=== PATIENT | male | born 1995 | race Caucasian/White ===

== ENCOUNTER 2016-07-04 11:45 | Observation (INO) | payer BC, MEDICAID ==
[~2016-07-04] VITALS: Ht 170.2 cm; Wt 109.0 kg
[~2016-07-04 11:45] MED LIST: IBUP600T26 PO; LORTA5 PO
[2016-07-04 11:46] VITALS: BP 139/94; PULSE 82; RESP 16; TEMP 97.7; O2SAT 97
[2016-07-04] MEDS ORDERED: SODIUM CHLOR 0.9% 1000 ML INJ 1,000 ML IV ONE ×2 (12:16→14:00)
--- NOTE | 2016-07-04 12:25 | PD ---
HPI Chief Complaint: Flank/Kidney Pain Time Seen by Provider: 12:10 Travel History International Travel<30 days: No Contact w/Intl Traveler<30days: No Traveled to known affect area: No History of Present Illness HPI This is a 20-year-old gentleman with an unfortunate history of renal calculi, who presents today with complaints of right sided flank pain. The patient status post lithotripsy yesterday. He presents today with severe right sided flank pain. He denies any fevers, chills. He states he called his urologist, Dr. Carroll, who told him to come to the ER for evaluation. The patient states he took 2 Percocet however did not alleviate his discomfort. This is what prompted him to call Dr. Carroll. Patient also reports nausea vomiting. PFSH Past Medical History Hx Anticoagulant Therapy: No Cardiovascular Problems: No Chemotherapy: No Cerebrovascular Accident: No Diabetes: No Diminished Hearing: No Respiratory: No Past Surgical History Hysterectomy: No Social History Alcohol Use: No Tobacco Use: No Substance Use: No Allergies-Medications (Allergen,Severity, Reaction): Coded Allergies: No Known Allergies (Unverified , 07/04/16) Reported Meds & Prescriptions Reported Meds & Active Scripts Active Reported Percocet (Oxycodone-Acetaminophen) 5-325 mg Tab 1-2 Tab PO Q6H PRN Wellbutrin Xl 24 HR (Bupropion HCl) 150 Mg Tab 150 Mg PO DAILY Review of Systems Except as stated in HPI: all other systems reviewed are Neg Respiratory: No: Cough, Shortness of Breath Gastrointestinal: Positive: Nausea, Vomiting, No: Abdominal Pain Genitourinary: Positive: Hematuria (mild), Other (blood-tinged urine with some cloudiness), No: Dysuria Musculoskeletal: Positive: Pain (right flank), No: Weakness Physical Exam Narrative GENERAL: Well-nourished, well-developed patient. SKIN: Warm and dry. HEAD: Normocephalic/atraumatic. CARDIOVASCULAR: Regular rate and rhythm without murmurs, gallops, or rubs. RESPIRATORY: Breath sounds equal bilaterally. No wheezes or Rales. GASTROINTESTINAL: Abdomen soft, nondistended. MUSCULOSKELETAL: No cyanosis, or edema. BACK: Mild right sided CVA tenderness. No deformity. NEUROLOGICAL: Awake and alert. Cranial nerves II through XII intact. Motor grossly within normal limits. Five out of 5 muscle strength in all muscle groups. Normal speech. Data Data Last Documented VS Vital Signs Date Time Temp Pulse Resp B/P Pulse Ox O2 Delivery O2 Flow Rate FiO2 07/04/16 15:29 18 07/04/16 13:05 84 07/04/16 11:46 97.7 139/94 97 Room Air Orders Basic Metabolic Panel (Bmp) (07/04/16 12:16) Urinalysis - C+S If Indicated (07/04/16 12:16) Ct Abd/Pel W/O Iv Contrast (07/04/16 12:16) Ecg Monitoring (07/04/16 12:16) Iv Access Insert/Monitor (07/04/16 12:16) Ketorolac Inj (Toradol Inj) (07/04/16 12:30) Ondansetron Inj (Zofran Inj) (07/04/16 12:30) Sodium Chloride 0.9% Flush (Ns Flush) (07/04/16 12:30) Sodium Chlor 0.9% 1000 Ml Inj (Ns 1000 M (07/04/16 12:16) Sodium Chlor 0.9% 1000 Ml Inj (Ns 1000 M (07/04/16 14:00) Hydromorphone Pf Inj (Dilaudid Pf Inj) (07/04/16 14:30) Admit Order (Ed Use Only) (07/04/16 15:36) Labs Laboratory Tests Test 07/04/16 07/04/16 12:55 13:30 Sodium Level 138 MEQ/L Potassium Level 3.9 MEQ/L Chloride Level 101 MEQ/L Carbon Dioxide Level 26.5 MEQ/L Anion Gap 11 MEQ/L Blood Urea Nitrogen 13 MG/DL Creatinine 1.51 MG/DL Estimat Glomerular Filtration 59 ML/MIN Rate Random Glucose 146 MG/DL Calcium Level 10.0 MG/DL Urine Color YELLOW Urine Turbidity HAZY Urine pH 8.0 Urine Specific [place] 1.015 Urine Protein NEG mg/dL Urine Glucose (UA) NEG mg/dL Urine Ketones 40 mg/dL Urine Occult Blood MOD Urine Nitrite NEG Urine Bilirubin NEG Urine Urobilinogen LESS THAN 2.0 MG/DL Urine Leukocyte Esterase NEG Urine RBC /hpf Urine Squamous Epithelial <1 /hpf Cells Urine Amorphous Sediment MOD Urine Bacteria RARE /hpf Urine Mucus FEW /lpf Microscopic Urinalysis Comment CULT NOT INDICATED MDM Medical Decision Making Medical Screen Exam Complete: Yes Emergency Medical Condition: Yes Differential Diagnosis Postprocedure pain versus obstruction versus ureteral spasm versus flank hematoma Narrative Course 20-year-old male with a history of renal lithiasis, status post lithotripsy yesterday, presents today nausea vomiting, right sided flank pain. The patient took 2 Percocets at home with no resolution. The patient's CT scan shows a 2 mm stone in the proximal right ureter with hydroureter. Patient also has 40 ketones in her urine. There is also a creatinine 1.53 which is up from the 1.0 baseline. He's been given 2 L of IVD fluid. He's been given one dose of IV Toradol followed by 1 mg of dilaudid. The patient will be brought in under observation for I V fluids, pain control. Patient's blood sugar was also in the 200s. Patient states that he was told he was prediabetic. It appears that he has a diabetic given the numbers. This was discussed with Dr. Raza Tavera as well as his resident team. Diagnosis Primary Impression: Acute kidney injury Additional Impressions: intractable right flank pain Ureteral stone with hydronephrosis hyperglycemia Hyperglycemia Alban Schmidt MD Jul 04, 2016 12:25
[2016-07-04] MEDS ORDERED: SODIUM CHLORIDE 0.9% FLUSH 10 ML FLUSH IVF PRN ×2 (12:30→16:45)
[2016-07-04] MEDS ORDERED: KETOROLAC TROMETHAMINE 30 MG/ML (IVP) VIAL IVP ONE (12:30)
[2016-07-04] MEDS ORDERED: ONDANSETRON HCL 4 MG/2 ML VIAL IVP ONE (12:30)
--- NOTE | 2016-07-04 12:59 | RADRPT ---
EXAM DATE/TIME: 07/04/2016 12:26 [facility] COMPARISON: CT ABDOMEN & PELVIS W/O CONTRAST, December 27, 2014, 20:56. INDICATIONS : Right flank pain. ORAL CONTRAST: No oral contrast ingested. RADIATION DOSE: 25.44 CTDIvol (mGy) MEDICAL HISTORY : Renal calculi. SURGICAL HISTORY : Lithotripsy. ENCOUNTER: Initial ACUITY: 2 days PAIN SCALE: 7/10 LOCATION: Right flank TECHNIQUE: Volumetric scanning of the abdomen and pelvis was performed. Using automated exposure control and ad justment of the mA and/or kV according to patient size, radiation dose was kept as low as reasonably achievable to obtain optimal diagnostic quality images. FINDINGS: The limited portion of the lung base visualized is clear. Right kidney/ureter: The right kidney is normal in size. There are 3 punctate stones seen within the collecting system. Th e largest measures 2 mm in size. There is mild dilation of the collecting system on the right and the right proximal ureter. There is a 2 mm stone evident within the proximal right ureter. Distally, the ureter is normal in caliber. Left kidney/ureter: The exam demonstrates 3 punctate stones within the collecting system. The largest measures 3 mm in si ze. There is no hydronephrosis. The left ureter is followed throughout its course and is unremarkable . Bladder: No stones are identified within the bladder. CT source data: The appearance of the liver, spleen, pancreas and adrenal glands is within normal limits by noncontra st CT. The visualized loops of small and large bowel are unremarkable. Note is made of a very small l eft inguinal hernia. CONCLUSION: 1. The examination demonstrates a 2 mm stone in the proximal right ureter with mild post obstructive changes. There are multiple other nonobstructing stones seen within the collecting system bilaterally . This is described in detail above. 2. Small left inguinal hernia Mirza Jones MD on July 04, 2016 at 12:48 Board Certified Radiologist. This report was verified electronically.
[2016-07-04] MEDS ORDERED: BUPR150XL PO (13:02)
[2016-07-04] MEDS ORDERED: CIPR-9 PO (13:05)
[2016-07-04] MEDS ORDERED: PERC5TAB12 PO (13:05)
[2016-07-04 13:47] LABS: BICARBONATE 26.5 MEQ/L (21.0-32.0); POTASSIUM 3.9 MEQ/L (3.5-5.1)
[2016-07-04 14:04] LABS: BACTERIA, URINE RARE /hpf; BLOOD, URINE MOD (NEG); COMMENT (UR) CULT NOT INDICATED; CULTURE IF INDICATED CULT NOT INDICATED; GLUCOSE,URINE NEG (NEG); KETONE, URINE 40 mg/dL (NEG); MUCUS URINE FEW /lpf (OCC); NITRITE,URINE NEG (NEG); SQUAMOUS EPITHELIAL CELL URINE <1 /hpf (0-5); URINE COLOR YELLOW (YELLW/STRAW)
[2016-07-04] MEDS ORDERED: HYDROmorphone HCL PF 1 MG/ML VIAL IV PUSH ONE (14:30)
--- NOTE | 2016-07-04 16:26 | HHI.HP ---
[facility] Service Family Medicine Primary Care Physician Nilda Scott MD Admission Diagnosis intractable pain, acute kidney injury, nausea and vomiting. Diagnoses: International Travel<30 Days: No Contact w/Intl Traveler<30days: No Known Affected Area: No History of Present Illness Patient is a 20-year-old male with past medical history significant for recurrent kidney stones who presents to the ED with right flank pain. He had elective lithotripsy procedure by Dr. Green on 07/02/16 to clear out asymptomatic stones which were noted on imaging studies. He notes that there were 24 mm stones in the right kidney and that "maximum wave" (high frequency) was used to break up the stones. The stones were to be removed so that he may have a 24 hour urine study to assess further for calcium levels. He was asymptomatic, only requiring Percocet sparingly 2 days ago. This morning at 6 AM , when he awoke to severe right lower back and flank pain, "like a regular kidney stone." He has had visible blood in the stool since the procedure, most recent urinary output was clear however. He has been using the sieve to filter his urine and has seen 2 small particles but no obvious stones. He also notes it is difficult to get comfortable. He states that the pain did not feel sharp in nature, but did feel constant and throbbing. It was associated with diaphoresis and 3 separate episodes of vomiting liquid as well as what he ate this morning. He took 2 Percocets which only helped for 30 minutes. He then called his urologist (Dr. Green) who told him to present to the ED. He does note he was prescribed ciprofloxacin prophylactically after the procedure which he was taking as prescribed. Missed his morning dose today due to coming to ED. He also had kidney stones diagnosed 2 years ago as well as in April 2016. In April he did take Flomax once which made him sleepy, which he discontinued because he was driving at the time. He collected stones in April which were shown to contain calcium. He does also have elevated calcium levels in his blood but normal "hormones which regulate calcium." In the ED he received a fluid bolus, Toradol, and Dilaudid. He states he feels better now. (Genesis Das MD R1) Review of Systems Constitutional: DENIES: Fever, Chills Endocrine: DENIES: Polyuria Eyes: DENIES: Blurred vision, Vision loss Ears, nose, mouth, throat: DENIES: Hearing loss, Running Nose, Epistaxis Respiratory: DENIES: Cough, Wheezing Cardiovascular: DENIES: Chest pain, Palpitations Gastrointestinal: DENIES: Abdominal pain, Black stools, Bloody stools, Constipation, Diarrhea, Nausea, Vomiting Genitourinary: COMPLAINS OF: Hematuria Musculoskeletal: COMPLAINS OF: Back pain (right flank), DENIES: Joint pain, Muscle aches Integumentary: DENIES: Pruritus, Rash Hematologic/lymphatic: DENIES: Lymphadenopathy Immunologic/allergic: DENIES: Urticaria Neurologic: DENIES: Localized weakness Psychiatric: COMPLAINS OF: Depression (takes Wellbutrin) (Genesis Das MD R1 ) Past Family Social History Past Medical History Prediabetic - last week PCP - Dr. Alonso in [place] - 2013, Apr 2016 (first time, used sieve, no stones; Apr 2016 stone Familial - mother's side of family Reported Medications Percocet (Oxycodone-Acetaminophen) 5-325 mg Tab 1-2 Tab PO Q6H PRN Wellbutrin Xl 24 HR (Bupropion HCl) 150 Mg Tab 150 Mg PO DAILY Ciprofloxacin (Genesis Das MD R1) Allergies: Coded Allergies: No Known Allergies (Unverified , 07/04/16) Active Ordered Medications Inpatient Medications Ciprofloxacin (Cipro) 500 mg Q12H PO Last administered on 07/04/16 18:01; Start 07/04/16 at 17:00 Hydromorphone HCl (Dilaudid Pf Inj) 1 mg Q4H PRN IV BREAKTHROUGH PAIN; Start at 16:45 Ketorolac Tromethamine (Toradol Inj) 30 mg ONCE ONCE IVP Last administered on 07/04/16 12:51; Start 07/04/16 at 12:30; Stop 07/04/16 at 12:31; Status DC Ketorolac Tromethamine (Toradol) 10 mg Q6HR PO ; Start 07/05/16 at 09:00; Stop 07/09/16 at 08:59 Naloxone HCl (Narcan Inj) 0.4 mg UNSCH PRN IV SEE LABEL COMMENTS; Start at 16:45 Ondansetron HCl (Zofran Odt) 4 mg Q4H PRN PO NAUSEA/VOMITING; Start 07/04/16 at 17:00 Ondansetron HCl (Zofran Inj) 4 mg ONCE ONCE IVP Last administered on 12:51; Start 07/04/16 at 12:30; Stop 07/04/16 at 12:31; Status DC Oxycodone/ Acetaminophen (Percocet 5-325 Mg) 2 tab Q4H PRN PO PAIN SCALE 6 TO 10; Start 07/04/16 at 16:45 Sodium Chloride (NS 1000 ml Inj) 1,000 ml @ 150 mls/hr Q6H40M IV Last administered on 07/04/16 18:01; Start 07/04/16 at 17:00 Sodium Chloride (NS Flush) 2 ml BID IV FLUSH ; Start 07/04/16 at 21:00; Stop at 21:00; Status DC Tamsulosin HCl 0.4 mg 0.4 mg HS PO ; Start 07/04/16 at 21:00 Family History Maternal grandfather with IN Father with diabetes and hypertension Multiple family members with heart issues Maternal family members with kidney stones Social History Never smoker Alcohol - occasional Illicit - denies Studies at [facility] (Genesis Das MD R1) Physical Exam Vital Signs Vital Signs Date Time Temp Pulse Resp B/P Pulse Ox O2 Delivery O2 Flow Rate FiO2 07/04/16 15:29 18 07/04/16 13:51 20 07/04/16 13:05 84 18 07/04/16 11:46 97.7 82 16 139/94 97 Room Air Physical Exam GENERAL: This is a well-nourished, well-developed male patient sitting up in bed in no apparent distress. at bedside. SKIN: No rashes, ecchymoses or lesions. Warm and dry. HEAD: Atraumatic. Normocephalic. No temporal or scalp tenderness. EYES: Pupils equal round and reactive. Extraocular motions intact. No scleral icterus. No injection or drainage. ENT: Nose without bleeding or drainage. Throat without erythema, tonsillar hypertrophy or exudate. Uvula midline. Airway patent. NECK: Trachea midline. No JVD or lymphadenopathy. Supple, nontender, no meningeal signs. CARDIOVASCULAR: Regular rate and rhythm without murmurs, gallops, or rubs. RESPIRATORY: Clear to auscultation. Breath sounds equal bilaterally. No wheezes , rales, or rhonchi. BACK: No CVA tenderness. GASTROINTESTINAL: Abdomen soft, non-tender, nondistended. Normal bowel sounds. No obvious organomegaly. MUSCULOSKELETAL: Extremities without clubbing, cyanosis, or edema. No joint tenderness, effusion, or edema noted. No calf tenderness. Negative Homans sign bilaterally. NEUROLOGICAL: Awake and alert. Cranial nerves II through XII intact. Motor and sensory grossly within normal limits. Five out of 5 muscle strength in all muscle groups. Normal speech. Laboratory Laboratory Tests Test 07/04/16 07/04/16 12:55 13:30 Sodium Level 138 Potassium Level 3.9 Chloride Level 101 Carbon Dioxide Level 26.5 Anion Gap 11 Blood Urea Nitrogen 13 Creatinine 1.51 Estimat Glomerular Filtration 59 Rate Random Glucose 146 Calcium Level 10.0 Urine Color YELLOW Urine Turbidity HAZY Urine pH 8.0 Urine Specific [place] 1.015 Urine Protein NEG Urine Glucose (UA) NEG Urine Ketones 40 Urine Occult Blood MOD Urine Nitrite NEG Urine Bilirubin NEG Urine Urobilinogen LESS THAN 2.0 Urine Leukocyte Esterase NEG Urine RBC Urine Squamous Epithelial <1 Cells Urine Amorphous Sediment MOD Urine Bacteria RARE Urine Mucus FEW Microscopic Urinalysis Comment CULT NOT INDICATED (Genesis Das MD R1) Result Diagram: 07/04/16 1255 Imaging Last Impressions Abdomen/Pelvis CT 07/04/16 1216 Signed Impressions: Service Date/Time: Wednesday, July 04, 2016 12:26 - CONCLUSION: 1. The examination demonstrates a 2 mm stone in the proximal right ureter with mild post obstructive changes. There are multiple other nonobstructing stones seen within the collecting system bilaterally. This is described in detail above. 2. Small left inguinal hernia Mirza Jones MD (Genesis Das MD R1) Assessment and Plan Assessment and Plan 20-year-old male with a history of bladder nephrolithiasis presents after lithotripsy 2 days ago with acute onset right flank pain. Code Status Full code Discussed Condition With Dr. Tavera, Dr. Alvarez (Genesis Das MD R1) Attending Attestation THIS CASE WAS DISCUSSED WITH THE RESIDENT PHYSICIAN. I HAVE REVIEWED THE RECORD AND AGREE WITH THE ABOVE NOTE AND PLAN OF CARE WAS DISCUSSED. I HAVE AUTHORIZED THE ORDER FOR PLACEMENT IN OUT-PATIENT OBSERVATION STATUS. (Raza Tavera MD) Problem List: (1) Ureteral stone with hydronephrosis Status: Acute Plan: Patient presents with acute right flank pain after lithotripsy procedure [address] showing 2 mm stone in the right proximal ureter. He is also noted to have acute kidney injury. -Admit to observation -Monitor vital signs -Maintenance IV fluids. He is status post bolus in ED -Recheck BMP in the morning -Pain management with Percocet 5-325mg 1 tab pain 1-5, Percocet 5-325mg 2 tabs pain 6-10, Dilaudid 1 mg IV for breakthrough pain -Continue ciprofloxacin 500 mg by mouth twice a day (2) Acute kidney injury Status: Acute Plan: Likely related to recent lithotripsy procedure and kidney stone and ureter. IV fluids as above, monitor BMP (3) Hyperglycemia Status: Acute Plan: Likely transient, however, patient states he is prediabetic on labs one week ago. We'll monitor BMP and bedside glucose. (4) Fluids/Electrolytes/Nutrition/Prophylaxis Status: Acute Plan: Fluids: NS @ 150ml/hr Electrolytes: monitor and replete as needed Nutrition: Regular DVT Prophylaxis: Deferred, patient is young and ambulatory GI Prophylaxis: Not indicated (Genesis Das MD R1) Genesis Das MD R1 Jul 04, 2016 16:26 Raza Tavera MD Jul 04, 2016 19:27
[2016-07-04] MEDS ORDERED: HYDROmorphone HCL PF 1 MG/ML VIAL IV PRN (16:45)
[2016-07-04] MEDS ORDERED: NALOXONE HCL 0.4 MG/ML AMP IV PRN (16:45)
[2016-07-04] MEDS ORDERED: SODIUM CHLORIDE 0.9% FLUSH 10 ML FLUSH IV FLUSH PRN (16:45)
[2016-07-04] MEDS ORDERED: SODIUM CHLOR 0.9% 1000 ML INJ 1,000 ML IV SCH (17:00)
[2016-07-04] MEDS ORDERED: ONDANSETRON ODT 4 MG TAB PO PRN (17:00)
[2016-07-04] MEDS: CIPROFLOXACIN 500 MG TAB PO SCH (18:01)
[2016-07-04] MEDS: SODIUM CHLOR 0.9% 1000 ML INJ 1,000 ML IV SCH (18:01)
[2016-07-04 18:46] VITALS: BP 144/88
--- NOTE | 2016-07-04 19:25 | HHI.HP ---
[facility] Service Family Medicine Primary Care Physician Nilda Scott MD Admission Diagnosis intractable pain, acute kidney injury, nausea and vomiting. Diagnoses: (1) Ureteral stone with hydronephrosis (2) Acute kidney injury (3) Hyperglycemia (4) Fluids/Electrolytes/Nutrition/Prophylaxis International Travel<30 Days: No Contact w/Intl Traveler<30days: No Known Affected Area: No History of Present Illness 20 yo M presenting with significant right sided flank pain s/p lithotripsy 2 days ago. He has a h/o kidney stones and is followed by Dr. Carroll. He had lithotripsy performed 2 days ago for 2 stones that were 4mm in size - and was given Percocet and Ciprofloxacin upon completion. He had some mild pain after the procedure and yesterday felt relatively well without pain, however he woke up this morning with persistent and deep right sided flank pain radiating to his right hip that was not helped with his home percocet. He states that the pain did not feel sharp in nature, but did feel constant and throbbing. It was associated with diaphoresis and 3 separate episodes of vomiting liquid as well as what he ate this morning. He then called his urologist (Dr. Carroll) who told him to present to the ED. He has a history of kidney stones in the past x2 but this is the first lithotripsy procedure he has had. The stones were to be removed so that he may have a 24 hour urine study to assess further for calcium levels. He has had visible blood in the stool since the procedure, most recent urinary output was clear however. He has been using the sieve to filter his urine and has seen 2 small particles but no obvious stones. He does note he was prescribed ciprofloxacin prophylactically after the procedure which he was taking as prescribed. Missed his morning dose today due to coming to ED. He also had kidney stones diagnosed 2 years ago as well as in April 2016. In April he did take Flomax once which made him sleepy, which he discontinued because he was driving at the time. He collected stones in April which were shown to contain calcium. He does also have elevated calcium levels in his blood but normal "hormones which regulate calcium." In the ED he received a fluid bolus, Toradol, and Dilaudid. He states he feels better now. Review of Systems Constitutional: COMPLAINS OF: Diaphoretic episodes, Chills, DENIES: Fever Respiratory: DENIES: Shortness of breath Cardiovascular: DENIES: Chest pain, Palpitations Gastrointestinal: COMPLAINS OF: Vomiting, DENIES: Abdominal pain, Constipation , Diarrhea, Nausea Genitourinary: COMPLAINS OF: Hematuria, DENIES: Urinary frequency, Urinary incontinence, Urgency, Dysuria, Testicular Pain Musculoskeletal: DENIES: Joint pain Past Family Social History Past Medical History Prediabetic - last week PCP - Dr. Alonso in [place] - 2013, Apr 2016 (first time, used sieve, no stones; Apr 2016 stone Familial - mother's side of family Allergies: Coded Allergies: No Known Allergies (Unverified , 07/04/16) Family History Maternal grandfather with IN Father with diabetes and hypertension Multiple family members with heart issues Maternal family members with kidney stones Social History Never smoker Alcohol - occasional Illicit - denies Studies at [facility] major Physical Exam Vital Signs Vital Signs Date Time Temp Pulse Resp B/P Pulse Ox O2 Delivery O2 Flow Rate FiO2 07/04/16 18:46 144/88 07/04/16 15:29 18 07/04/16 13:51 20 07/04/16 13:05 84 18 07/04/16 11:46 97.7 82 16 139/94 97 Room Air Physical Exam GENERAL: This is a well-nourished, well-developed male patient sitting up in bed in no apparent distress. at bedside. SKIN: No rashes, ecchymoses or lesions. Warm and dry. NECK: Trachea midline. No JVD or lymphadenopathy. CARDIOVASCULAR: Regular rate and rhythm without murmurs, gallops, or rubs. RESPIRATORY: Clear to auscultation. Breath sounds equal bilaterally. No wheezes , rales, or rhonchi. BACK: No CVA tenderness. GASTROINTESTINAL: Abdomen soft, non-tender, nondistended. Normal bowel sounds. No obvious organomegaly. MUSCULOSKELETAL: Extremities without clubbing, cyanosis, or edema. NEUROLOGICAL: Awake and alert. Normal speech. Laboratory Laboratory Tests Test 07/04/16 07/04/16 12:55 13:30 Sodium Level 138 Potassium Level 3.9 Chloride Level 101 Carbon Dioxide Level 26.5 Anion Gap 11 Blood Urea Nitrogen 13 Creatinine 1.51 Estimat Glomerular Filtration 59 Rate Random Glucose 146 Calcium Level 10.0 Urine Color YELLOW Urine Turbidity HAZY Urine pH 8.0 Urine Specific [place] 1.015 Urine Protein NEG Urine Glucose (UA) NEG Urine Ketones 40 Urine Occult Blood MOD Urine Nitrite NEG Urine Bilirubin NEG Urine Urobilinogen LESS THAN 2.0 Urine Leukocyte Esterase NEG Urine RBC Urine Squamous Epithelial <1 Cells Urine Amorphous Sediment MOD Urine Bacteria RARE Urine Mucus FEW Microscopic Urinalysis Comment CULT NOT INDICATED Result Diagram: 07/04/16 1255 Imaging Last Impressions Abdomen/Pelvis CT 07/04/16 1216 Signed Impressions: Service Date/Time: Monday, July 04, 2016 12:26 - CONCLUSION: 1. The examination demonstrates a 2 mm stone in the proximal right ureter with mild post obstructive changes. There are multiple other nonobstructing stones seen within the collecting system bilaterally. This is described in detail above. 2. Small left inguinal hernia Mirza Jones MD Assessment and Plan Assessment and Plan 20-year-old male with a history of bladder nephrolithiasis presents after lithotripsy 2 days ago with acute onset right flank pain. Problem List: (1) Ureteral stone with hydronephrosis Status: Acute Plan: Patient presents with acute right flank pain after lithotripsy procedure [address] showing 2 mm stone in the right proximal ureter. He is also noted to have acute kidney injury. -Admit to observation -Monitor vital signs -Maintenance IV fluids. He is status post bolus in ED -Recheck BMP in the morning -Pain management with Percocet 5-325mg 1 tab pain 1-5, Percocet 5-325mg 2 tabs pain 6-10, Dilaudid 1 mg IV for breakthrough pain -Continue ciprofloxacin 500 mg by mouth twice a day (2) Acute kidney injury Status: Acute Plan: Likely related to recent lithotripsy procedure and kidney stone and ureter. IV fluids as above, monitor BMP (3) Hyperglycemia Status: Acute Plan: Likely transient, however, patient states he is prediabetic on labs one week ago. We'll monitor BMP and bedside glucose. (4) Fluids/Electrolytes/Nutrition/Prophylaxis Status: Acute Plan: Fluids: NS @ 150ml/hr Electrolytes: monitor and replete as needed Nutrition: Regular DVT Prophylaxis: Deferred, patient is young and ambulatory GI Prophylaxis: Not indicated Raza Tavera MD Jul 04, 2016 19:25
[2016-07-04] MEDS: TAMSULOSIN HCL 0.4 MG CAP PO SCH (20:00)
[2016-07-04] MEDS: SODIUM CHLORIDE 0.9% FLUSH 10 ML FLUSH IVF SCH (20:01)
[2016-07-04] MEDS: oxyCODONE/ACETAMINOPHEN 5 MG/325 MG TAB PO PRN (20:01)
[2016-07-04 20:13] VITALS: BP 138/76; PULSE 75; RESP 18; TEMP 98.4; O2SAT 97
[2016-07-04] MEDS ORDERED: SODIUM CHLORIDE 0.9% FLUSH 10 ML FLUSH IV FLUSH SCH (21:00)
[2016-07-05 00:35] VITALS: BP 140/72; PULSE 85; RESP 18; TEMP 97.8; O2SAT 97
[2016-07-05] MEDS: SODIUM CHLOR 0.9% 1000 ML INJ 1,000 ML IV SCH ×3 (03:07→16:10)
[2016-07-05 03:55] VITALS: BP 138/78; PULSE 82; RESP 18; TEMP 97.9; O2SAT 96
[2016-07-05] MEDS: CIPROFLOXACIN 500 MG TAB PO SCH ×2 (05:06→16:47)
[2016-07-05] MEDS: oxyCODONE/ACETAMINOPHEN 5 MG/325 MG TAB PO PRN ×3 (05:12→16:24)
[2016-07-05 07:05] LABS: AUTOMATED NEUTROPHIL # 7.5 TH/MM3 (1.8-7.7); BASOPHIL % 0.3 % (0.0-2.0); EOSINOPHIL # 0.1 TH/MM3 (0-0.4); EOSINOPHIL % 1.3 % (0.0-4.0); HEMATOCRIT 39.4 % (39.0-51.0); HEMO FLAGS DIFF FINAL; LYMPH % 19.1 % (9.0-44.0); LYMPHOCYTE # 2.1 TH/MM3 (1.0-4.8); MEAN CELL VOLUME 87.6 FL (80.0-100.0); MEAN CORPUSCULAR HEMOGLOBIN 30.5 PG (27.0-34.0); MEAN CORPUSCULAR HGB CONC 34.9 % (32.0-36.0); MONO % 11.5 % (0.0-8.0); NEUT % 67.8 % (16.0-70.0); PLATELET COUNT 263 TH/MM3 (150-450); RED CELL DISTRIBUTION WIDTH 12.9 % (11.6-17.2)
[2016-07-05 07:07] LABS: BICARBONATE 26.2 MEQ/L (21.0-32.0); POTASSIUM 3.9 MEQ/L (3.5-5.1)
[2016-07-05 07:58] VITALS: BP 112/75; PULSE 95; RESP 18; TEMP 98.2; O2SAT 9
[2016-07-05] MEDS: KETOROLAC TROMETHAMINE 10 MG TAB PO SCH ×3 (08:40→22:00)
[2016-07-05] MEDS: SODIUM CHLORIDE 0.9% FLUSH 10 ML FLUSH IVF SCH ×2 (09:00→21:00)
--- NOTE | 2016-07-05 11:21 | HHI.FPPN ---
Subjective Remarks Patient states that he is currently feeling well. When he first awakened this morning, pain was not as well controlled but he has since received po analgesia , which has helped. No denies fever, chills, sob. He has strained his urine but has not noticed passage of stone. (Yaima Das MD) Objective Vitals Vital Signs Date Time Temp Pulse Resp B/P Pulse Ox O2 Delivery O2 Flow Rate FiO2 07/05/16 07:58 98.2 95 18 112/75 9 07/05/16 03:55 97.9 82 18 138/78 96 07/05/16 00:35 97.8 85 18 140/72 97 07/04/16 20:13 98.4 75 18 138/76 97 07/04/16 18:46 144/88 07/04/16 15:29 18 07/04/16 13:51 20 07/04/16 13:05 84 18 07/04/16 11:46 97.7 82 16 139/94 97 Room Air (Yaima Das MD) Result Diagram: 07/05/16 0557 07/05/16 0537 Objective Remarks GENERAL: This is a well-nourished, well-developed male patient sitting up in bed in no apparent distress. SKIN: No rashes, ecchymoses or lesions. Warm and dry. HEAD: Atraumatic. Normocephalic. EYES: Pupils equal round and reactive. Extraocular motions intact. No scleral icterus. No injection or drainage. ENT: Nose without bleeding or drainage. Throat without erythema, tonsillar hypertrophy or exudate. Uvula midline. Airway patent. NECK: Trachea midline. No JVD or lymphadenopathy. Supple, nontender, no meningeal signs. CARDIOVASCULAR: Regular rate and rhythm without murmurs, gallops, or rubs. RESPIRATORY: Clear to auscultation. Breath sounds equal bilaterally. No wheezes , rales, or rhonchi. BACK: No CVA tenderness, mild right sided flank tenderness. GASTROINTESTINAL: Abdomen soft, non-tender, nondistended. Normal bowel sounds. No obvious organomegaly. MUSCULOSKELETAL: Extremities without clubbing, cyanosis, or edema. NEUROLOGICAL: Awake and alert. Cranial nerves II through XII intact. Motor and sensory grossly within normal limits. Five out of 5 muscle strength in all muscle groups. Normal speech. (Yaima Das MD) Urinary Catheter: No (Yaima Das MD) Vascular Central Line Catheter: No (Yaima Das MD) A/P Assessment and Plan 20-year-old male with a history of bladder nephrolithiasis presents after lithotripsy 2 days ago with acute onset right flank pain. wdw: Dr. Tavera Discharge Planning home later today (Yaima Das MD) Attending Attestation Pt. examined and case discussed with resident physicians I have read the above note and agree with the assessment/plan as discussed with me I was involved in all medical decision making for this patient Raza Tavera MD (Raza Tavera MD) Problem List: (1) Ureteral stone with hydronephrosis Status: Acute Plan: Patient presents with acute right flank pain after lithotripsy procedure [address] showing 2 mm stone in the right proximal ureter. He is also noted to have acute kidney injury. -Monitor vital signs -Maintenance IV fluids: NS at 150 mls/hr -Pain management with Percocet 5-325mg 1 tab pain 1-5, Percocet 5-325mg 2 tabs pain 6-10, Dilaudid 1 mg IV for breakthrough pain -Flomax 0.4 mg po hs -Continue ciprofloxacin 500 mg by mouth twice a day -DC home later today if patient continues to do well with oral analgesia, stone likely to be passed without urological procedure given stone is < 5mm (2) Acute kidney injury Status: Acute Plan: Likely related to recent lithotripsy procedure and kidney stone and ureter. IV fluids as above, monitor BMP (3) Hyperglycemia Status: Resolved Plan: Serum glucose 105 this morning. (4) Fluids/Electrolytes/Nutrition/Prophylaxis Status: Acute Plan: Fluids: NS @ 150ml/hr Electrolytes: monitor and replete as needed Nutrition: Regular DVT Prophylaxis: Deferred, patient is young and ambulatory GI Prophylaxis: Not indicated (Yiama Das MD) Yaima Das MD Jul 05, 2016 11:21 Raza Tavera MD Jul 05, 2016 17:18
[2016-07-05 11:35] VITALS: BP 122/71; PULSE 89; RESP 18; O2SAT 95
[2016-07-05] MEDS ORDERED: KETO10 PO (12:31)
[2016-07-05] MEDS ORDERED: TAMS5CAP PO (12:31)
[2016-07-05] MEDS ORDERED: OXYC1TAB63 PO (12:31)
[2016-07-05] MEDS ORDERED: CIPR-9 PO (12:31)
--- NOTE | 2016-07-05 12:32 | HHI.DCPOC ---
Discharge Care Plan Diagnosis: (1) Ureteral stone with hydronephrosis Goals to Promote Your Health * To prevent worsening of your condition and complications, take medication as prescribed and follow up with urologist. Directions to Meet Your Goals Take your medications as prescribed Follow your dietary instruction Follow activity as directed Keep your appointments as scheduled Take your immunizations and boosters as scheduled If your symptoms worsen call your PCP, if no PCP go to Urgent Care Center or Emergency Room Smoking is Dangerous to Your Health. Avoid second hand smoke Call the 24-hour hour crisis hotline for domestic abuse at Yaima Das MD Jul 05, 2016 12:32
[2016-07-05 15:55] VITALS: BP 120/74; PULSE 86; RESP 20; TEMP 98.5; O2SAT 95
[2016-07-05 20:52] VITALS: BP 125/72; PULSE 91; RESP 18; TEMP 97.8; O2SAT 95
[2016-07-05] MEDS: TAMSULOSIN HCL 0.4 MG CAP PO SCH (22:00)
[2016-07-06 00:40] VITALS: BP 134/80; PULSE 68; RESP 18; TEMP 98.8; O2SAT 97
[2016-07-06] MEDS: oxyCODONE/ACETAMINOPHEN 5 MG/325 MG TAB PO PRN ×2 (00:47→13:33)
[2016-07-06] MEDS: SODIUM CHLOR 0.9% 1000 ML INJ 1,000 ML IV SCH ×2 (01:48→09:09)
[2016-07-06] MEDS: KETOROLAC TROMETHAMINE 10 MG TAB PO SCH ×3 (03:00→15:09)
[2016-07-06 04:53] VITALS: BP 121/56; PULSE 92; RESP 18; TEMP 98.8; O2SAT 98
[2016-07-06] MEDS: CIPROFLOXACIN 500 MG TAB PO SCH (04:57)
[2016-07-06 06:32] LABS: BICARBONATE 25.9 MEQ/L (21.0-32.0); POTASSIUM 3.7 MEQ/L (3.5-5.1)
[2016-07-06] MEDS ORDERED: SODIUM CHLORID 0.9% 500 ML INJ 500 ML IV ONE (07:00)
[2016-07-06 08:19] VITALS: BP 146/74; PULSE 92; RESP 19; TEMP 97.8; O2SAT 96
[2016-07-06] MEDS: SODIUM CHLORIDE 0.9% FLUSH 10 ML FLUSH IVF SCH (09:00)
--- NOTE | 2016-07-06 09:12 | HHI.FPPN ---
Subjective Remarks Patient was still having right sided lower back pain. Today it is a 3/10, constant, dull aching. Yesterday he did not tolerate a diet well, and had severe nausea. No blood in urine and no passage of stone. Denies fevers and chills. (Sal Alvarez MD R2) Objective Vitals Vital Signs Date Time Temp Pulse Resp B/P Pulse Ox O2 Delivery O2 Flow Rate FiO2 07/06/16 08:19 97.8 92 19 146/74 96 07/06/16 04:53 98.8 92 18 121/56 98 07/06/16 00:40 98.8 68 18 134/80 97 07/05/16 20:52 97.8 91 18 125/72 95 07/05/16 15:55 98.5 86 20 120/74 95 07/05/16 15:03 16 07/05/16 11:35 89 18 122/71 95 I/O 07/05/16 07/05/16 07/05/16 07/06/16 07/06/16 07/06/16 07:00 15:00 23:00 07:00 15:00 23:00 Intake Total 1980 ml 1500 ml Balance 1980 ml 1500 ml Intake Oral 480 ml IV Total 1500 ml 1500 ml # Voids 3 # Bowel Movements 0 (Sal Alvarez MD R2) Result Diagram: 07/05/16 0557 07/06/16 0542 Objective Remarks GENERAL: This is a well-nourished, well-developed male patient sitting up in bed in no apparent distress. SKIN: No rashes, ecchymoses or lesions. Warm and dry. HEAD: Atraumatic. Normocephalic. EYES: Pupils equal round and reactive. Extraocular motions intact. No scleral icterus. No injection or drainage. ENT: Nose without bleeding or drainage. Throat without erythema, tonsillar hypertrophy or exudate. Uvula midline. Airway patent. NECK: Trachea midline. No JVD or lymphadenopathy. Supple, nontender, no meningeal signs. CARDIOVASCULAR: Regular rate and rhythm without murmurs, gallops, or rubs. RESPIRATORY: Clear to auscultation. Breath sounds equal bilaterally. No wheezes , rales, or rhonchi. BACK: No CVA tenderness, mild right sided flank tenderness. GASTROINTESTINAL: Abdomen soft, non-tender, nondistended. Normal bowel sounds. No obvious organomegaly. MUSCULOSKELETAL: Extremities without clubbing, cyanosis, or edema. NEUROLOGICAL: Awake and alert. Cranial nerves II through XII intact. Motor and sensory grossly within normal limits. Five out of 5 muscle strength in all muscle groups. Normal speech. (Sal Alvarez MD R2) A/P Assessment and Plan 20-year-old male with a history of bladder nephrolithiasis presents after lithotripsy 2 days ago with acute onset right flank pain. dw: Dr. Tavera Discharge Planning home later today (Sal Alvarez MD R2) Attending Attestation Pt. examined and case discussed with resident physicians I have read the above note and agree with the assessment/plan as discussed with me I was involved in all medical decision making for this patient Raza Tavera MD (Raza Tavera MD) Problem List: (1) Ureteral stone with hydronephrosis Status: Acute Plan: Patient presents with acute right flank pain after lithotripsy procedure [address] showing 2 mm stone in the right proximal ureter. He is also noted to have acute kidney injury. -Monitor vital signs -Maintenance IV fluids: NS at 150 mls/hr -Pain management with Percocet 5-325mg 1 tab pain 1-5, Percocet 5-325mg 2 tabs pain 6-10, Dilaudid 1 mg IV for breakthrough pain -Flomax 0.4 mg po hs -Continue ciprofloxacin 500 mg by mouth twice a day -US right kidney for signs of obstruction --- CR increased from 1.51 --> 1.68. ? Hydronephrosis vs. interstitial nephritis 2/2 cipro. (2) Acute kidney injury Status: Acute Plan: Rule out obstruction as above. IV fluids as above, monitor BMP (3) Hyperglycemia Status: Resolved Plan: Serum glucose 104 this morning. (4) Fluids/Electrolytes/Nutrition/Prophylaxis Status: Acute Plan: Fluids: NS @ 150ml/hr Electrolytes: monitor and replete as needed Nutrition: Regular DVT Prophylaxis: Deferred, patient is young and ambulatory GI Prophylaxis: Not indicated dw Dr. Tavera. (Sal Alvarez MD R2) Sal Alvarez MD R2 Jul 06, 2016 09:12 Raza Tavera MD Jul 06, 2016 19:07
--- NOTE | 2016-07-06 10:11 | RADRPT ---
EXAM DATE/TIME: 07/06/2016 09:33 [facility] COMPARISON: CT ABDOMEN & PELVIS W/O CONTRAST, July 04, 2016, 12:26. INDICATIONS : Obstruction. MEDICAL HISTORY : Renal calculi. Hematuria. Excessive sweating. SURGICAL HISTORY : Lithotripsy on 07/02/16. ENCOUNTER: Initial ACUITY: 1 day PAIN SCORE: 5/10 LOCATION: Bilateral flank MEASUREMENTS: RIGHT KIDNEY: 11.1 x 6.4 x 6.2 cm LEFT KIDNEY: 12.4 x 5.8 x 5.6 cm FINDINGS: RIGHT KIDNEY: Renal calculi are noted, small without hydronephrosis. LEFT KIDNEY: Renal calculi are again noted without hydronephrosis. BLADDER: Within normal limits given the degree of distension. CONCLUSION: Bilateral renal calculi. These are small by CT measuring less 1 cm and multiple numbers. There is n o hydronephrosis. Nikhil Jones MD FACR on July 06, 2016 at 10:07 Board Certified Radiologist. This report was verified electronically.
[2016-07-06] MEDS ORDERED: PROMETHAZINE HCL 25 MG TAB PO PRN (12:00)
[2016-07-06 12:14] VITALS: BP 121/82; PULSE 90; RESP 19; TEMP 98; O2SAT 94
[2016-07-06] MEDS ORDERED: PROM25TA5 PO (16:36)
--- NOTE | 2016-07-08 11:08 | HHI.DS ---
Discharge Summary Admission Date Jul 04, 2016 at 15:38 Discharge Date: Jul 06, 2016 Admitting Diagnosis intractable pain, acute kidney injury, nausea and vomiting. (1) Ureteral stone with hydronephrosis Diagnosis: Principal Plan: Patient presents with acute right flank pain after lithotripsy procedure [address] showing 2 mm stone in the right proximal ureter. He is also noted to have acute kidney injury. -Monitor vital signs -Maintenance IV fluids: NS at 150 mls/hr -Pain management with Percocet 5-325mg 1 tab pain 1-5, Percocet 5-325mg 2 tabs pain 6-10, Dilaudid 1 mg IV for breakthrough pain -Flomax 0.4 mg po hs -Continue ciprofloxacin 500 mg by mouth twice a day -US right kidney for signs of obstruction --- CR increased from 1.51 --> 1.68. ? Hydronephrosis vs. interstitial nephritis 2/2 cipro. (2) Acute kidney injury Diagnosis: Principal Plan: Rule out obstruction as above. IV fluids as above, monitor BMP (3) Fluids/Electrolytes/Nutrition/Prophylaxis Plan: Fluids: NS @ 150ml/hr Electrolytes: monitor and replete as needed Nutrition: Regular DVT Prophylaxis: Deferred, patient is young and ambulatory GI Prophylaxis: Not indicated Consultants None Brief History 20 yo M presenting with significant right sided flank pain s/p lithotripsy 2 days ago. He has a h/o kidney stones and is followed by Dr. Carroll. He had lithotripsy performed 2 days ago for 2 stones that were 4mm in size - and was given Percocet and Ciprofloxacin upon completion. He had some mild pain after the procedure and yesterday felt relatively well without pain, however he woke up this morning with persistent and deep right sided flank pain radiating to his right hip that was not helped with his home percocet. He states that the pain did not feel sharp in nature, but did feel constant and throbbing. It was associated with diaphoresis and 3 separate episodes of vomiting liquid as well as what he ate this morning. He then called his urologist (Dr. Carroll) who told him to present to the ED. He has a history of kidney stones in the past x2 but this is the first lithotripsy procedure he has had. The stones were to be removed so that he may have a 24 hour urine study to assess further for calcium levels. He has had visible blood in the stool since the procedure, most recent urinary output was clear however. He has been using the sieve to filter his urine and has seen 2 small particles but no obvious stones. He does note he was prescribed ciprofloxacin prophylactically after the procedure which he was taking as prescribed. Missed his morning dose today due to coming to ED. He also had kidney stones diagnosed 2 years ago as well as in April 2016. In April he did take Flomax once which made him sleepy, which he discontinued because he was driving at the time. He collected stones in April which were shown to contain calcium. He does also have elevated calcium levels in his blood but normal "hormones which regulate calcium." In the ED he received a fluid bolus, Toradol, and Dilaudid. He states he feels better now. CBC/BMP: 07/05/16 0557 07/06/16 0542 Significant Findings Laboratory Tests Test 07/06/16 05:42 Creatinine 1.68 MG/DL (0.60-1.30) Estimat Glomerular Filtration 52 ML/MIN (>89) Rate Imaging Last Impressions Renal Ultrasound 07/06/16 0000 Signed Impressions: Service Date/Time: Wednesday, July 06, 2016 09:33 - CONCLUSION: Bilateral renal calculi. These are small by CT measuring less 1 cm and multiple numbers. There is no hydronephrosis. Nikhil Jones MD FACR Abdomen/Pelvis CT 07/04/16 1216 Signed Impressions: Service Date/Time: Monday, July 04, 2016 12:26 - CONCLUSION: 1. The examination demonstrates a 2 mm stone in the proximal right ureter with mild post obstructive changes. There are multiple other nonobstructing stones seen within the collecting system bilaterally. This is described in detail above. 2. Small left inguinal hernia Mirza Jones MD PE at Discharge GENERAL: This is a well-nourished, well-developed male patient sitting up in bed in no apparent distress. SKIN: No rashes, ecchymoses or lesions. Warm and dry. HEAD: Atraumatic. Normocephalic. EYES: Pupils equal round and reactive. Extraocular motions intact. No scleral icterus. No injection or drainage. ENT: Nose without bleeding or drainage. Throat without erythema, tonsillar hypertrophy or exudate. Uvula midline. Airway patent. NECK: Trachea midline. No JVD or lymphadenopathy. Supple, nontender, no meningeal signs. CARDIOVASCULAR: Regular rate and rhythm without murmurs, gallops, or rubs. RESPIRATORY: Clear to auscultation. Breath sounds equal bilaterally. No wheezes , rales, or rhonchi. BACK: No CVA tenderness, mild right sided flank tenderness. GASTROINTESTINAL: Abdomen soft, non-tender, nondistended. Normal bowel sounds. No obvious organomegaly. MUSCULOSKELETAL: Extremities without clubbing, cyanosis, or edema. NEUROLOGICAL: Awake and alert. Cranial nerves II through XII intact. Motor and sensory grossly within normal limits. Five out of 5 muscle strength in all muscle groups. Normal speech. Hospital Course Patient was admitted for management of persistent pain related to kidney stone located at the proximal right ureter. This was status post lithotripsy on 07/02. He was also noted to have KEN on admission. He was medically managed with intravenous venous fluids, by mouth and IV pain medication, Flomax, and was continued on ciprofloxacin postprocedure prophylaxis. UA on admission only remarkable for hematuria. Pain was not well-controlled on day 2 of stay and AK I persistent. Renal ultrasound performed showing no evidence of hydronephrosis. He was discharged to home after clearance from his urologist (Dr. Carroll contacted by phone); patient has an appointment on 07/[address] Carroll. He was discharged with Flomax, Percocet, Toradol, Phenergan, and Cipro. Pt Condition on Discharge: Stable Discharge Disposition: Discharge Home Discharge Instructions DIET: Follow Instructions for: As Tolerated, No Restrictions Activities you can perform: Regular-No Restrictions Follow up Referrals: Physician - 2 Weeks New Medications: Promethazine (Phenergan) 25 Mg Tab 25 MG PO Q6H PRN Nausea/Vomiting #45 Ref 0 TAB Ciprofloxacin (Cipro) 500 Mg Tab 500 MG PO Q12H #14 TAB Ketorolac (Ketorolac) 10 Mg Tab 10 MG PO Q6H #20 TAB Oxycodone-Acetaminophen (Oxycodone-Acetaminophen) 5-325 mg Tab 1 TAB PO q6h PRN pain #40 TAB Tamsulosin (Flomax) 0.4 Mg Cap 0.4 MG PO HS #10 CAP Continued Medications: Bupropion HCl ER 24 HR (Wellbutrin Xl 24 HR) 150 Mg Tab 150 MG PO DAILY Control Depression Ref 0 TAB Discontinued Medications: Ciprofloxacin (Cipro) 500 Mg Tab 500 MG PO BID Infection Ref 0 TAB Oxycodone-Acetaminophen (Percocet) 5-325 mg Tab 1-2 TAB PO Q6H PRN PAIN Ref 0 TAB Genesis Das MD R1 Jul 08, 2016 11:08
== END 2016-07-06 17:55 | disposition home or self-care (01) ==
LOC: NEPC 11:45 → NEDA 15:38 → NEPHCDU 18:31
PROVIDERS: ADMIT Family Medicine; ATTEND Family Medicine
DX: N13.2 Hydronephrosis with renal and ureteral calculous obstruction (principal); R73.9 Hyperglycemia, unspecified; N17.9 Acute kidney failure, unspecified
CPT/HCPCS: 74176; 76775; 80048; 81001; 82948; 85025; 96361; 96374; 96375; 99285; G0378; J1170; J1885; J2405; J7030; J7040; Q0169

== ENCOUNTER 2016-07-09 00:47 | Emergency (ER) | payer BC ==
[~2016-07-09 00:47] MED LIST changes: +BUPR150XL PO; +CIPR-9 PO; -IBUP600T26 PO; +KETO10 PO; -LORTA5 PO; +OXYC1TAB63 PO; +PROM25TA5 PO; +TAMS5CAP PO
[2016-07-09 00:49] VITALS: BP 144/97; PULSE 103; RESP 20; TEMP 99.2; O2SAT 97
[2016-07-09 02:25] LABS: AUTOMATED NEUTROPHIL # 10.3 TH/MM3 (1.8-7.7); BASOPHIL # 0.1 TH/MM3 (0-0.2); BASOPHIL % 0.5 % (0.0-2.0); EOSINOPHIL # 0.2 TH/MM3 (0-0.4); EOSINOPHIL % 1.6 % (0.0-4.0); HEMATOCRIT 39.7 % (39.0-51.0); HEMO FLAGS DIFF FINAL; LYMPH % 11.4 % (9.0-44.0); LYMPHOCYTE # 1.5 TH/MM3 (1.0-4.8); MEAN CELL VOLUME 86.4 FL (80.0-100.0); MEAN CORPUSCULAR HEMOGLOBIN 30.3 PG (27.0-34.0); MEAN CORPUSCULAR HGB CONC 35.1 % (32.0-36.0); MONO % 10.2 % (0.0-8.0); NEUT % 76.3 % (16.0-70.0); PLATELET COUNT 312 TH/MM3 (150-450); RED BLOOD COUNT 4.59 MIL/MM3 (4.50-5.90); RED CELL DISTRIBUTION WIDTH 12.9 % (11.6-17.2); WHITE BLOOD COUNT 13.6 TH/MM3 (4.0-11.0)
[2016-07-09 03:00] LABS: ALKALINE PHOSPHATASE 62 U/L (45-117); ALT (GPT) 28 U/L (12-78); ANION GAP 8 MEQ/L (5-15); AST (GOT) 21 U/L (15-37); BICARBONATE 27.4 MEQ/L (21.0-32.0); BLOOD UREA NITROGEN 15 MG/DL (7-18); CHLORIDE 103 MEQ/L (98-107); GLOMERULAR FILTRATION RATE 52 ML/MIN (>89); POTASSIUM 3.7 MEQ/L (3.5-5.1); SODIUM (NA) 138 MEQ/L (136-145); TOTAL BILIRUBIN ADULT 0.4 MG/DL (0.2-1.0)
[2016-07-09 03:40] VITALS: BP 132/90; PULSE 99; RESP 16; O2SAT 98
[2016-07-09 04:36] VITALS: BP 138/89; PULSE 98; RESP 18; O2SAT 98
[2016-07-09 04:52] LABS: BLOOD, URINE LARGE (NEG); COMMENT (UR) CULT NOT INDICATED; CULTURE IF INDICATED CULT NOT INDICATED; GLUCOSE,URINE NEG (NEG); KETONE, URINE NEG (NEG); MUCUS URINE FEW /lpf (OCC); NITRITE,URINE NEG (NEG); PH, URINE 6.5 (5.0-8.5); URINE COLOR YELLOW (YELLW/STRAW)
[2016-07-09] MEDS ORDERED: MORPHINE SULFATE 8 MG/ML INJ IV PUSH ONE (05:00)
--- NOTE | 2016-07-09 05:13 | PD ---
HPI Chief Complaint: Flank/Kidney Pain Time Seen by Provider: 04:48 Travel History International Travel<30 days: No Contact w/Intl Traveler<30days: No Traveled to known affect area: No History of Present Illness HPI 20yo M with PMH of nephrolithiasis presents to the ED with c/o right flank pain yesterday. Pt had lithotripsy 07/02/16 and was admitted 07/04/16-07/06/16 for ureteral stone with hydronephrosis. CT showed 2mm stone in right proximal ureter. Pt states pain is back and radiates from right flank to right groin. + Hematuria. +Nausea and vomiting. Denies any chest pain, sob, abdominal pain, penile discharge. PFSH Past Medical History Hx Anticoagulant Therapy: No Depression: Yes Cardiovascular Problems: No Chemotherapy: No Cerebrovascular Accident: No Diabetes: No Diminished Hearing: No Kidney Stones: Yes Respiratory: No Past Surgical History Hysterectomy: No Other Surgery: Yes Social History Alcohol Use: Yes (RARE) Tobacco Use: No Substance Use: No Allergies-Medications (Allergen,Severity, Reaction): Coded Allergies: No Known Allergies (Unverified , 07/09/16) Reported Meds & Prescriptions Reported Meds & Active Scripts Active Ibuprofen 600 Mg Tab 600 Mg PO Q8HR PRN Phenergan (Promethazine HCl) 25 Mg Tab 25 Mg PO Q6H PRN Flomax (Tamsulosin HCl) 0.4 Mg Cap 0.4 Mg PO HS Oxycodone-Acetaminophen 5-325 mg Tab 1 Tab PO Q6H PRN Cipro (Ciprofloxacin HCl) 500 Mg Tab 500 Mg PO Q12H Reported Wellbutrin Xl 24 HR (Bupropion HCl) 150 Mg Tab 150 Mg PO DAILY Review of Systems Except as stated in HPI: all other systems reviewed are Neg Physical Exam Narrative GENERAL: 20yo M in mild idstress. SKIN: Focused skin assessment warm/dry. HEAD: Atraumatic. Normocephalic. CARDIOVASCULAR: Regular rate and rhythm. No murmur appreciated. RESPIRATORY: No accessory muscle use. Clear to auscultation. Breath sounds equal bilaterally. GASTROINTESTINAL: Abdomen soft, non-tender, nondistended. No rebound tenderness or guarding. BACK: +CVA tenderness on right. : No testicular ttp. +TTP right groin. MUSCULOSKELETAL: No obvious deformities. No clubbing. No cyanosis. No edema. NEUROLOGICAL: Awake and alert. No obvious cranial nerve deficits. Motor grossly within normal limits. Normal speech. PSYCHIATRIC: Appropriate mood and affect; insight and judgment normal. Data Data Last Documented VS Vital Signs Date Time Temp Pulse Resp B/P Pulse Ox O2 Delivery O2 Flow Rate FiO2 07/09/16 07:34 86 16 132/76 100 07/09/16 04:36 Room Air 07/09/16 00:49 99.2 Orders Urinalysis - C+S If Indicated (07/09/16 01:11) Complete Blood Count With Diff (07/09/16 01:43) Comprehensive Metabolic Panel (07/09/16 01:43) Morphine Inj (Morphine Inj) (07/09/16 05:00) Ondansetron Inj (Zofran Inj) (07/09/16 05:15) Sodium Chlor 0.9% 1000 Ml Inj (Ns 1000 M (07/09/16 05:15) Sodium Chlor 0.9% 1000 Ml Inj (Ns 1000 M (07/09/16 05:15) Morphine Inj (Morphine Inj) (07/09/16 06:00) Hydromorphone Pf Inj (Dilaudid Pf Inj) (07/09/16 06:45) Labs Laboratory Tests Test 07/09/16 07/09/16 01:43 04:16 White Blood Count 13.6 TH/MM3 Red Blood Count 4.59 MIL/MM3 Hemoglobin 13.9 GM/DL Hematocrit 39.7 % Mean Corpuscular Volume 86.4 FL Mean Corpuscular Hemoglobin 30.3 PG Mean Corpuscular Hemoglobin 35.1 % Concent Red Cell Distribution Width 12.9 % Platelet Count 312 TH/MM3 Mean Platelet Volume 8.5 FL Neutrophils (%) (Auto) 76.3 % Lymphocytes (%) (Auto) 11.4 % Monocytes (%) (Auto) 10.2 % Eosinophils (%) (Auto) 1.6 % Basophils (%) (Auto) 0.5 % Neutrophils # (Auto) 10.3 TH/MM3 Lymphocytes # (Auto) 1.5 TH/MM3 Monocytes # (Auto) 1.4 TH/MM3 Eosinophils # (Auto) 0.2 TH/MM3 Basophils # (Auto) 0.1 TH/MM3 CBC Comment DIFF FINAL Differential Comment Sodium Level 138 MEQ/L Potassium Level 3.7 MEQ/L Chloride Level 103 MEQ/L Carbon Dioxide Level 27.4 MEQ/L Anion Gap 8 MEQ/L Blood Urea Nitrogen 15 MG/DL Creatinine 1.68 MG/DL Estimat Glomerular Filtration 52 ML/MIN Rate Random Glucose 130 MG/DL Calcium Level 10.1 MG/DL Total Bilirubin 0.4 MG/DL Aspartate Amino Transf 21 U/L (AST/SGOT) Alanine Aminotransferase 28 U/L (ALT/SGPT) Alkaline Phosphatase 62 U/L Total Protein 7.6 GM/DL Albumin 4.1 GM/DL Urine Color YELLOW Urine Turbidity CLEAR Urine pH 6.5 Urine Specific [place] 1.018 Urine Protein TRACE mg/dL Urine Glucose (UA) NEG mg/dL Urine Ketones NEG mg/dL Urine Occult Blood LARGE Urine Nitrite NEG Urine Bilirubin NEG Urine Urobilinogen LESS THAN 2.0 MG/DL Urine Leukocyte Esterase NEG Urine RBC /hpf Urine WBC 4 /hpf Urine Mucus FEW /lpf Microscopic Urinalysis Comment CULT NOT INDICATED MDM Medical Decision Making Medical Screen Exam Complete: Yes Emergency Medical Condition: Yes Interpretation(s) Laboratory Tests Test 07/09/16 07/09/16 01:43 04:16 White Blood Count 13.6 TH/MM3 (4.0-11.0) Red Blood Count 4.59 MIL/MM3 (4.50-5.90) Hemoglobin 13.9 GM/DL (13.0-17.0) Hematocrit 39.7 % (39.0-51.0) Mean Corpuscular Volume 86.4 FL (80.0-100.0) Mean Corpuscular Hemoglobin 30.3 PG (27.0-34.0) Mean Corpuscular Hemoglobin 35.1 % Concent (32.0-36.0) Red Cell Distribution Width 12.9 % (11.6-17.2) Platelet Count 312 TH/MM3 (150-450) Mean Platelet Volume 8.5 FL (7.0-11.0) Neutrophils (%) (Auto) 76.3 % (16.0-70.0) Lymphocytes (%) (Auto) 11.4 % (9.0-44.0) Monocytes (%) (Auto) 10.2 % (0.0-8.0) Eosinophils (%) (Auto) 1.6 % (0.0-4.0) Basophils (%) (Auto) 0.5 % (0.0-2.0) Neutrophils # (Auto) 10.3 TH/MM3 (1.8-7.7) Lymphocytes # (Auto) 1.5 TH/MM3 (1.0-4.8) Monocytes # (Auto) 1.4 TH/MM3 (0-0.9) Eosinophils # (Auto) 0.2 TH/MM3 (0-0.4) Basophils # (Auto) 0.1 TH/MM3 (0-0.2) CBC Comment DIFF FINAL Differential Comment Sodium Level 138 MEQ/L (136-145) Potassium Level 3.7 MEQ/L (3.5-5.1) Chloride Level 103 MEQ/L (98-107) Carbon Dioxide Level 27.4 MEQ/L (21.0-32.0) Anion Gap 8 MEQ/L (5-15) Blood Urea Nitrogen 15 MG/DL (7-18) Creatinine 1.68 MG/DL (0.60-1.30) Estimat Glomerular Filtration 52 ML/MIN (>89) Rate Random Glucose 130 MG/DL (74-106) Calcium Level 10.1 MG/DL (8.5-10.1) Total Bilirubin 0.4 MG/DL (0.2-1.0) Aspartate Amino Transf 21 U/L (15-37) (AST/SGOT) Alanine Aminotransferase 28 U/L (12-78) (ALT/SGPT) Alkaline Phosphatase 62 U/L (45-117) Total Protein 7.6 GM/DL (6.4-8.2) Albumin 4.1 GM/DL (3.4-5.0) Urine Color YELLOW (YELLW/STRAW) Urine Turbidity CLEAR (CLEAR) Urine pH 6.5 (5.0-8.5) Urine Specific [place] 1.018 (1.002-1.035) Urine Protein TRACE mg/dL (NEG-TRACE) Urine Glucose (UA) NEG mg/dL (NEG) Urine Ketones NEG mg/dL (NEG) Urine Occult Blood LARGE (NEG) Urine Nitrite NEG (NEG) Urine Bilirubin NEG (NEG) Urine Urobilinogen LESS THAN 2.0 MG/DL (LESS THAN 2.0) Urine Leukocyte Esterase NEG (NEG) Urine RBC /hpf (0-3) Urine WBC 4 /hpf (0-5) Urine Mucus FEW /lpf (OCC) Microscopic Urinalysis Comment CULT NOT INDICATED Differential Diagnosis Nephrolithiasis vs. obstructive uropathy Narrative Course 20yo M with history of nephrolithiasis with right sided flank pain yesterday. Labs reviewed, leukocytosis at 13.6. Creatinine elevated at 1.68 which has not changed since 07/06/16. UA showed large blood. Negative leukocyte or nitrite. Pt just had a recent CT scan. I discussed with Dr. Cardona, urologist concrete carpenter and he states that he does not need another CT scan and he can call the office today and follow up there. Pt given morphine and dilaudid for pain. Pain has improved. Pt given given zofran and NS IVF. Pt is nontoxic appearing. VS improved and pt is no longer tachycardic. Pt is to follow up with Dr. Carroll today. Return precautions given. Diagnosis Primary Impression: Nephrolithiasis Referrals: Michael Carroll MD 1 day Patient Instructions: General Instructions Departure Forms: Tests/Procedures Additional Instructions: Please follow up with Dr. Carroll today. Return to the ED if symptoms worsen. Med/Other Pt SpecificInfo: Prescription(s) given Scripts Ibuprofen 600 Mg Lpo863 Mg PO Q8HR PRN (PAIN) #20 TAB Ref 0 Prov:Wendy Maldonado DO 07/09/16 Disposition: 01 DISCHARGE HOME Condition: Stable Wendy Maldonado DO Jul 09, 2016 05:13
[2016-07-09] MEDS ORDERED: SODIUM CHLOR 0.9% 1000 ML INJ 1,000 ML IV ONE ×2 (05:15)
[2016-07-09] MEDS ORDERED: ONDANSETRON HCL 4 MG/2 ML VIAL IV PUSH ONE (05:15)
[2016-07-09] MEDS ORDERED: MORPHINE SULFATE 4 MG/ML INJ IV PUSH ONE (06:00)
[2016-07-09] MEDS ORDERED: HYDROmorphone HCL PF 1 MG/ML VIAL IV PUSH ONE (06:45)
[2016-07-09] MEDS ORDERED: IBUP-232 PO (06:59)
[2016-07-09 07:34] VITALS: BP 132/76
== END 2016-07-09 07:36 | disposition home or self-care (01) ==
LOC: NEPE 00:47
DX: N20.2 Calculus of kidney with calculus of ureter (principal)
CPT/HCPCS: 80053; 81001; 85025; 96361; 96374; 96375; 96376; 99284; J1170; J2270; J2405; J7030